=== PATIENT | female | born 1955 | race Caucasian/White ===

== ENCOUNTER 2024-01-20 10:43 | Outpatient (AMB) | payer OTHER, SELFPAY ==
--- NOTE | 2024-01-20 11:19 | PD.ORTHCLVIS ---
Vital signs 01/20/24 11:20 Height 1.55 m Height Method Stated Weight 59.931 kg Weight Measurement Method Standing Scale BMI 24.9 BP 124/77 Blood Pressure Source Automatic Cuff Blood Pressure Location Right Upper Arm Position Sitting Respiration 19 Pulse 102 H Pulse Source Monitor Temp 97.7 F Temp Source Temporal Artery Scan Pulse Oximetry (%) 95 Oxygen Delivery Method Room Air Med/Allergies Allergies & Medications Allergies YOHANA Inhibitors Allergy (Intermediate, Verified 01/20/24 11:20) Cough Medication Reconciliation insulin glargine 100 unit/mL (3 mL) subcutaneous pen (Lantus Solostar U-100 Insulin) 30 unit subcut QDAY PRN Hyperglycemia 06/20/17 [History Confirmed 01/20/24] dapagliflozin propanediol 5 mg tablet (Farxiga) 5 mg PO QAM 07/09/22 [History Confirmed 01/20/24] duloxetine 30 mg capsule,delayed release 30 mg PO HS 07/09/22 [History Confirmed 01/20/24] atorvastatin 20 mg tablet (Lipitor) 20 mg PO QDAY 01/02/24 [History Confirmed 01/20/24] duloxetine 60 mg capsule,delayed release sprinkle 60 mg PO QAM 01/02/24 [History Confirmed 01/20/24] memantine 5 mg tablet 5 mg PO DAILY 01/02/24 [History Confirmed 01/20/24] acetaminophen 500 mg tablet (Acetaminophen Extra Strength) 1,000 mg (2 x 500 mg) PO Q6H PRN pain #90 tabs 01/05/24 [Rx Confirmed 01/20/24] apixaban 2.5 mg tablet (Eliquis) 2.5 mg PO BID #60 tabs 01/05/24 [Rx Confirmed 01/20/24] doxycycline hyclate 100 mg tablet 100 mg PO BID #14 tabs 01/05/24 [Rx Confirmed 01/20/24] gabapentin 300 mg capsule 300 mg PO .qhs #30 caps 01/05/24 [Rx Confirmed 01/20/24] sennosides 8.6 mg-docusate sodium 50 mg tablet (Senna-S) 1 tab-cap PO QDAY #30 tabs 01/05/24 [Rx Confirmed 01/20/24] Subjective Visit Visit for: post op #1 Immunization / Flu Flu Vaccine in the Last 12 Months: No Flu Vaccine Exclusion Criteria: No Exclusion Criteria History of Present Illness Chief complaint: Left knee pain Patient is a pleasant 60-year-old female with a recent left total knee replacement. She is doing well. She has minimal pain. There is some swelling which is Appropriate Personal History Occupation: DISABLED Red flag PMH: none Pain Pain level (0-10): 4 Pain duration: ALL DAY Pain location: anterior Pain quality: sharp and dull Ambulatory data Ambulatory device: cane Treatments Improvement with previous injections: No Improvement with PT: No Improvement with NSAIDS: n/a Review of Systems Review of Systems: All systems negative unless otherwise noted in HPI. Exam Exam Patient is in no acute distress and is cooperative with the examination today. Patient has a normal mood and affect. Breathing is nonlabored. In no respiratory distress. Bilateral extremities were evaluated and demonstrates sensation intact to light touch. Palpable pedal pulses are present. No significant edema is present. Left knee incision is clean dry and intact. Assessment and Plan Problem List (1) Bilateral primary osteoarthritis of knee: Status: Acute Plan: . Patient is a pleasant 67-year-old female with bilateral knee pain and osteoarthritis. She is status post right total knee replacement and is doing well. We will transition her to outpatient physical therapy. (2) Bilateral knee pain: Status: Acute Advanced Care Planning Discussion Advance care planning discussed with:: patient Office Procedures GNS Level of Care Nursing/Assessment Patient Status: Established Patient Nursing Assessment/Reassesment: Medication Reconciliation, Update PMH in EMR and Vital Signs Coordination of Care: Complex Care and Chronic Disease 1-5, Education Complex Pt/Fam, Consent,records obtained, informed consent, 1 Ins Authorization, Results/Orders obtained and Staff clarify orders Special Needs: Language special needs Established Patient Charge Established Patient Point Assignment: 110 Established Patient Point Charge: EP Level 3 (80-115) Past Medical History Past Medical History Have you ever been diagnosed with any of the following: Neurological Problems Seizures: No Cardiology Problems Hypercholesterolemia: Yes Congestive Heart Failure: No Deep Vein Thrombosis: Yes (Left 2022) Hypertension: Yes Respiratory Problems Chronic Obstructive Pulmonary Disease (COPD): No Hx Cough: No Cough: No Wheezing: No Chest Deformities: No Smoking: No Smoking Cessation Counseling: No Smoking Exposure: No Tobacco Use: No Clubbing: No Stomache/Intestinal Problems Hepatitis: No Genital/Urinary Problems Renal Disease: No Reproductive Problems Previous Pregnancies: Yes Uterine Prolapse: No Musculoskeletal Problems Arthritis: Yes Degenerative Disk Disease: Yes Fractures: Yes Endocrine Problems Diabetes Mellitus Type 1: No Diabetes Mellitus Type 2: Yes Psychologic Problems Depression: Yes Anxiety: Yes Other Problems Hospitalization: Yes (DVT) Shingles: No Blood Transfusions: No Blood Transfusion Reaction: No Anesthesia Reactions: No Measles: Yes Mumps: Yes Cancer: No Surgical History Hysterectomy: Yes
[2024-01-20 11:20] VITALS: BP 124/77; PULSE 102; RESP 19; TEMP 36.5; O2SAT 95; BMI 24.9
== END 2024-01-20 11:20 | disposition home or self-care (01) ==
LOC: HODSRG 10:43
PROVIDERS: PCP Internal Medicine; Referring Provider Internal Medicine; Supervising Provider Orthopaedic Surgery Adult Reconstructive Orthopaedic Surgery; Visit Provider Orthopaedic Surgery Adult Reconstructive Orthopaedic Surgery
DX: M17.0 Bilateral primary osteoarthritis of knee (principal); M25.561 Pain in right knee; M25.562 Pain in left knee; Z96.651 Presence of right artificial knee joint; E78.00 Pure hypercholesterolemia, unspecified; I10 Essential (primary) hypertension
CPT/HCPCS: 99213; G0463

== ENCOUNTER 2024-02-17 10:08 | Outpatient (AMB) | payer OTHER, SELFPAY ==
[2024-02-17 10:48] VITALS: BP 121/72; PULSE 83; RESP 18; TEMP 36.6; O2SAT 98; BMI 24.7
--- NOTE | 2024-02-17 10:48 | PD.ORTHCLVIS ---
Vital signs 02/17/24 10:48 Height 1.55 m Height Method Stated Weight 59.421 kg Weight Measurement Method Standing Scale BMI 24.7 BP 121/72 Blood Pressure Source Automatic Cuff Blood Pressure Location Left Upper Arm Position Sitting Respiration 18 Pulse 83 Pulse Source Monitor Temp 97.9 F Temp Source Temporal Artery Scan Pulse Oximetry (%) 98 Oxygen Delivery Method Room Air Med/Allergies Allergies & Medications Allergies YOHANA Inhibitors Allergy (Intermediate, Verified 02/17/24 10:49) Cough Medication Reconciliation insulin glargine 100 unit/mL (3 mL) subcutaneous pen (Lantus Solostar U-100 Insulin) 30 unit subcut QDAY PRN Hyperglycemia 06/20/17 [History Confirmed 02/17/24] dapagliflozin propanediol 5 mg tablet (Farxiga) 5 mg PO QAM 07/09/22 [History Confirmed 02/17/24] duloxetine 30 mg capsule,delayed release 30 mg PO HS 07/09/22 [History Confirmed 02/17/24] atorvastatin 20 mg tablet (Lipitor) 20 mg PO QDAY 01/02/24 [History Confirmed 02/17/24] duloxetine 60 mg capsule,delayed release sprinkle 60 mg PO QAM 01/02/24 [History Confirmed 02/17/24] memantine 5 mg tablet 5 mg PO DAILY 01/02/24 [History Confirmed 02/17/24] acetaminophen 500 mg tablet (Acetaminophen Extra Strength) 1,000 mg (2 x 500 mg) PO Q6H PRN pain #90 tabs 01/05/24 [Rx Confirmed 02/17/24] apixaban 2.5 mg tablet (Eliquis) 2.5 mg PO BID #60 tabs 01/05/24 [Rx Confirmed 02/17/24] doxycycline hyclate 100 mg tablet 100 mg PO BID #14 tabs 01/05/24 [Rx Confirmed 02/17/24] gabapentin 300 mg capsule 300 mg PO .qhs #30 caps 01/05/24 [Rx Confirmed 02/17/24] sennosides 8.6 mg-docusate sodium 50 mg tablet (Senna-S) 1 tab-cap PO QDAY #30 tabs 01/05/24 [Rx Confirmed 02/17/24] oxycodone 5 mg tablet 5 mg PO Q6H PRN pain #28 tabs 01/23/24 [Rx Confirmed 02/17/24] meloxicam 7.5 mg tablet 7.5 mg PO QDAY #45 tabs 02/17/24 [Rx] Subjective Visit Visit for: follow up visit and knee Immunization / Flu Flu Vaccine in the Last 12 Months: No Flu Vaccine Exclusion Criteria: No Exclusion Criteria History of Present Illness Chief complaint: Left knee pain Patient is a pleasant 60-year-old female with a recent left total knee replacement. She is doing well. She has minimal pain. There is some swelling which is appropriate. ROM is 0-90 degrees Personal History Occupation: DISABLED Red flag PMH: none Pain Pain level (0-10): 0 Pain duration: ALL DAY Pain location: anterior Pain quality: sharp and dull Ambulatory data Ambulatory device: walker Treatments Improvement with previous injections: No Improvement with PT: No Improvement with NSAIDS: no Review of Systems Review of Systems: All systems negative unless otherwise noted in HPI. Exam Exam Patient is in no acute distress and is cooperative with the examination today. Patient has a normal mood and affect. Breathing is nonlabored. In no respiratory distress. Bilateral extremities were evaluated and demonstrates sensation intact to light touch. Palpable pedal pulses are present. No significant edema is present. Left knee incision is clean dry and intact.ROM is 0-90 degrees Assessment and Plan Problem List (1) Bilateral primary osteoarthritis of knee: Status: Acute Plan: . Patient is a pleasant 67-year-old female with bilateral knee pain and osteoarthritis. She is status post left total knee replacement and is doing well. She is working with outpatient physical therapy. I would like for her to work on her flexion more. She is in quite a bit of pain today as she just came from physical therapy. (2) Bilateral knee pain: Status: Acute Advanced Care Planning Discussion Advance care planning discussed with:: patient Office Procedures GNS Level of Care Nursing/Assessment Patient Status: Established Patient Nursing Assessment/Reassesment: Medication Reconciliation, Update PMH in EMR and Vital Signs Coordination of Care: Complex Care and Chronic Disease 1-5, Education Complex Pt/Fam, Consent,records obtained, informed consent, Results/Orders obtained and Staff clarify orders Established Patient Charge Established Patient Point Assignment: 95 Established Patient Point Charge: EP Level 3 (80-115) Past Medical History Past Medical History Have you ever been diagnosed with any of the following: Neurological Problems Seizures: No Cardiology Problems Hypercholesterolemia: Yes Congestive Heart Failure: No Deep Vein Thrombosis: Yes (Left 2022) Hypertension: Yes Respiratory Problems Chronic Obstructive Pulmonary Disease (COPD): No Hx Cough: No Cough: No Wheezing: No Chest Deformities: No Smoking: No Smoking Cessation Counseling: No Smoking Exposure: No Tobacco Use: No Clubbing: No Stomache/Intestinal Problems Hepatitis: No Genital/Urinary Problems Renal Disease: No Reproductive Problems Previous Pregnancies: Yes Uterine Prolapse: No Musculoskeletal Problems Arthritis: Yes Degenerative Disk Disease: Yes Fractures: Yes Endocrine Problems Diabetes Mellitus Type 1: No Diabetes Mellitus Type 2: Yes Psychologic Problems Depression: Yes Anxiety: Yes Other Problems Hospitalization: Yes (DVT) Shingles: No Blood Transfusions: No Blood Transfusion Reaction: No Anesthesia Reactions: No Measles: Yes Mumps: Yes Cancer: No Surgical History Hysterectomy: Yes
== END 2024-02-17 11:07 | disposition home or self-care (01) ==
LOC: HODSRG 10:08
PROVIDERS: Supervising Provider Orthopaedic Surgery Adult Reconstructive Orthopaedic Surgery; Visit Provider Orthopaedic Surgery Adult Reconstructive Orthopaedic Surgery
DX: M17.0 Bilateral primary osteoarthritis of knee (principal); M25.561 Pain in right knee; M25.562 Pain in left knee; Z96.652 Presence of left artificial knee joint; I10 Essential (primary) hypertension; E78.00 Pure hypercholesterolemia, unspecified
CPT/HCPCS: 99213; G0463

== ENCOUNTER 2024-02-25 09:30 | Outpatient (RCR) | payer OTHER, SELFPAY ==
--- NOTE | 2024-02-11 09:44 | PT.OIERPT ---
PT OP Initial Eval Patient Information Outpatient Physical Therapy Treatment Date: 02/11/24 Visit Reasons: S/P L TKA Medical Diagnosis: Left Knee OA Treatment Dx #1: Left Knee Mobility Deficits Treatment Dx #2: Left Knee Weakness Start of Care: 02/11/24 Date of Onset: 01/05/24 Smoking Status Smoking Status: Never smoker Initial Assessment Subjective: Pt is a 68 y/o female s/p left TKA 01/05/24. Pt's knee was feeling better until she bumped into her recliner. Pt recieved a few weeks of homehealth PT with Sarah. Pt has limitation with standing, walking, chores, self care, cooking, cleaning, squatting, and performing recreational activities. Objective: Left Knee AROM: -12 deg to 60 deg Left Knee MMTs: grossly 3-/5 Left Hip MMTs: grossly 3-/5 SLS: NT Assessment: Pt demonstrate left knee mobility and strength deficits s/p TKA leading to difficulty with ADLs. Pt will benefit from physical therapy to increase ROM, strength, and work on mobility. 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 1) Increase left knee flexion to 115 deg in 12 wks to be able to perform squatting activities 2) Decrease knee pain to 2/10 in 12 wks to be able to stand more than 30 mins 3) Increase left knee MMTs grossly to 4/5 in 12 wks to be able to perform stairs and steps 4) Increase left hip MMTs grossly to 4-/5 in 12 wks to be able to walk more than 30 mins without AD 5) Indep with HEP Treatment Plan 1) Manual Therapy 2) Therapeutic Activities 3) Therapeutic Exercises 4) Modalities (ice, heat) 5) Gait Training 6) Balance Training Frequency and Duration: 2 x wk for 12 wks Certification Dates: 02/11/24 to 05/13/24 Procedure Charges OP PT Eval Mod Complex 30 minutes: Yes
--- NOTE | 2024-02-13 13:05 | PT.ODAYNRPT ---
PT Outpatient Daily Note OP Daily Note Outpatient Physical Therapy Treatment Date: 02/13/24 Visit Reasons: S/P L TKA Subjective: Pt's knee is stiff and hurts with bending. Objective: Please see flow chart for list of ther ex performed Assessment: guarded with knee flexion AROM due to pain; improved knee flexion AROM post PT session Plan: Continue with PT Length of Time (minutes) of Treatment: 30 Minutes Procedure Charges Therapeutic Exercise 30 minutes: Yes
--- NOTE | 2024-02-17 10:05 | PT.ODAYNRPT ---
PT Outpatient Daily Note OP Daily Note Outpatient Physical Therapy Treatment Date: 02/17/24 Visit Reasons: S/P L TKA Subjective: Pt is having a bad day today. The knee feels really stiff. Pt mention she hasn't been stretching much at home. Objective: Please see flow chart for list of ther ex performed Assessment: hypersensitive today and unable to relax during PROM/stretching. Slow progress with knee ROM due to poor tolerance to exercises due to pain Plan: Continue with PT Length of Time (minutes) of Treatment: 30 Minutes Procedure Charges Therapeutic Exercise 30 minutes: Yes
--- NOTE | 2024-02-19 11:00 | PTNOTE_ITS ---
PT Outpatient Daily Note OP Daily Note Outpatient Physical Therapy Treatment Date: 02/19/24 Visit Reasons: S/P L TKA Subjective: Pt seen doctor and he wants her to take it easy in physical therapy to help with the swelling. Objective: Left Knee Flexion AROM: 61 deg//68 deg Assessment: improved knee flexion AROM post stretching. Pt more guarded to usual due to pain , however, able to tolerate instructed reps Plan: Continue with PT Length of Time (minutes) of Treatment: 30 Minutes Procedure Charges Therapeutic Exercise 30 minutes: Yes
--- NOTE | 2024-02-23 11:26 | PT.ODAYNRPT ---
PT Outpatient Daily Note OP Daily Note Outpatient Physical Therapy Treatment Date: 02/23/24 Visit Reasons: S/P L TKA Subjective: Pt's knee is still from the cold front. Objective: Left Knee AROM: 69 deg//79 deg Assessment: Pt continues to improve with knee flexion AROM. Pt was able to complete full cycle on the sci fit for a few mins today. Plan: Continue with PT Length of Time (minutes) of Treatment: 30 Minutes Procedure Charges Therapeutic Exercise 30 minutes: Yes
--- NOTE | 2024-02-25 10:47 | PT.ODAYNRPT ---
PT Outpatient Daily Note OP Daily Note Outpatient Physical Therapy Treatment Date: 02/25/24 Visit Reasons: S/P L TKA Subjective: Pt reports L knee is sore and stiff. Objective: Please see flow sheet for ther ex list. Assessment: Pt highly guarded and high pain response with PROM into knee flexion resulting in poor ROM. Plan: Continue with POC. Length of Time (minutes) of Treatment: 30 Minutes Procedure Charges Therapeutic Exercise 30 minutes: Yes
== END 2024-02-28 23:59 | disposition home or self-care (01) ==
LOC: CPTX 09:30
PROVIDERS: PCP Orthopaedic Surgery Adult Reconstructive Orthopaedic Surgery; Referring Provider Orthopaedic Surgery Adult Reconstructive Orthopaedic Surgery; Visit Provider Orthopaedic Surgery Adult Reconstructive Orthopaedic Surgery
DX: R53.1 Weakness (principal); R26.2 Difficulty in walking, not elsewhere classified; Z96.652 Presence of left artificial knee joint; M17.12 Unilateral primary osteoarthritis, left knee
CPT/HCPCS: 97110; 97162

== ENCOUNTER → 2024-03-09 | Outpatient (CLI) | payer OTHER, SELFPAY ==
[2024-03-09 10:24] LABS: Basophils # (Auto) 0.1 Thou/mm3 (0.0-0.2); Basophils % (Auto) 2 % (0-2.5); Eosinophils # (Auto) 0.1 Thou/mm3 (0.0-0.5); Eosinophils % (Auto) 1 % (0-10); Hematocrit 44.6 % (36.0-46.0); Hemoglobin 14.9 g/dL (12.0-16.0); Immature Granulocytes % (Auto) 0 % (0-0); Immature Granulocytes Auto 0.02 Thou/mm3 (0.00-0.00); Lymphocytes # (Auto) 1.4 Thou/mm3 (1.0-4.8); Lymphocytes % (Auto) 27 % (10-50); Mean Corpuscular HGB Conc 33.4 g/dl (31.0-37.0); Mean Corpuscular Hemoglobin 30.2 pg (25.0-35.0); Mean Corpuscular Volume 90 fL (80-100); Monocytes # (Auto) 0.5 Thou/mm3 (0.0-0.8); Monocytes % (Auto) 10 % (0-12); Neutrophils # (Auto) 3.3 Thou/mm3 (1.8-7.7); Neutrophils % (Auto) 60 % (37-80); Nucleated Red Blood Cell % 0 /100 WBC (0); Platelet Count 249 Thou/mm3 (140-440); RDW Standard Deviation 45.4 fL (36.4-46.3); Red Blood Count 4.94 Miln/mm3 (4.00-5.20); White Blood Count 5.4 Thou/mm3 (3.6-11.0)
[2024-03-09 10:49] LABS: Glucose Estimated Average 126 mg/dL (80-131)
[2024-03-09 11:00] LABS: Vitamin B12 1258 pg/mL (211-911); Vitamin D 25 Hydroxy Total 43.4 ng/mL (7.3-40.2)
[2024-03-09 11:02] LABS: Alanine Aminotransferase 11 U/L (10-49); Albumin, Serum 4.8 gm/dL (3.4-4.8); Albumin/Globulin Ratio 2.5 (1.2-2.2); Alkaline Phosphatase 82 U/L (46-116); Anion Gap 7 (7-16); Aspartate Amino Transferase 16 U/L (0-34); BUN/Creatinine Ratio 29 Ratio (12-20); Bilirubin,Total 0.4 mg/dL (0.3-1.2); Blood Urea Nitrogen 23 mg/dL (9-23); Carbon Dioxide 24.1 mMol/L (20.0-31.0); Cardiac Risk Estimate 3.7 RATIO (3.7-5.6); Chloride 109 mMol/L (98-107); Cholesterol 191 mg/dL (132-200); Creatinine (Component) 0.8 mg/dL (0.6-1.3); Globulin 1.9 gm/dL (2.3-3.5); Glucose 87 mg/dL (74-106); HDL Cholesterol 51 mg/dL (40-60); LDL Cholesterol,Calculated 128 mg/dL (0-130); Osmolality,Calculated 282 (275-295); Potassium 4.6 mMol/L (3.4-5.1); Sodium 140 mMol/L (136-145); Thyroid Stimulating Hormone 1.65 uIU/mL (0.55-4.78); Total Protein 6.7 gm/dL (5.7-8.2); Triglycerides 59 mg/dL (30-150); Uric Acid 3.5 mg/dL (3.1-7.8); eGFR > 60 See Note
[2024-03-09 11:19] LABS: Collection Type, Urine Clean Catch
[2024-03-09 11:52] LABS: Bilirubin,Urine Negative (Negative); Blood,Urine Negative (Negative); Clarity,Urine Clear (Clear/Hazy); Color,Urine Lt-Yellow (Lt Yel-Yel); Glucose, Urine 4+ (Negative); Ketones,Urine Negative (Negative); Leukocyte Esterase,Urine Negative (Negative); Nitrite,Urine Negative (Negative); Protein,Urine Negative (Neg - Trace); RBC,Urine 2 /hpf (0-3); Specific Gravity,Urine 1.032 (1.001-1.035); Squamous Epithelial Cell,Urine < 1 /hpf (0-5); Urobilinogen,Urine Negative mg/dL (0.0-1.0); WBC,Urine < 1 /hpf (0-5)
[2024-03-09 12:06] LABS: Creatinine MALB Rnd Ur 70 mg/dL (30-125); Microalbumin Creat Ratio 7 mg/gCrea (<30); Microalbumin, Random Urine 5 mg/L (0-300)
== END | disposition home or self-care (01) ==
PROVIDERS: PCP Internal Medicine; Referring Provider Internal Medicine; Visit Provider Internal Medicine
DX: Z00.00 Encounter for general adult medical examination without abnormal findings (principal); E11.9 Type 2 diabetes mellitus without complications; I10 Essential (primary) hypertension; E78.5 Hyperlipidemia, unspecified
CPT/HCPCS: 36415; 80053; 80061; 81001; 82043; 82306; 82570; 82607; 83036; 84443; 84550; 85025

== ENCOUNTER 2024-03-12 09:51 | Outpatient (AMB) | payer OTHER, SELFPAY ==
[2024-03-12 10:14] VITALS: BP 130/71; PULSE 77; RESP 17; TEMP 36.8; O2SAT 98; BMI 25.3
--- NOTE | 2024-03-12 10:14 | PD.ORTHCLVIS ---
Vital signs 03/12/24 10:14 Height 1.55 m Height Method Measured Weight 60.781 kg Weight Measurement Method Standing Scale BMI 25.3 BP 130/71 Blood Pressure Source Automatic Cuff Blood Pressure Location Left Upper Arm Position Sitting Respiration 17 Pulse 77 Pulse Source Monitor Temp 98.2 F Temp Source Oral Pulse Oximetry (%) 98 Oxygen Delivery Method Room Air Med/Allergies Allergies & Medications Allergies YOHANA Inhibitors Allergy (Intermediate, Verified 02/17/24 10:49) Cough Subjective Visit Visit for: follow up visit, post op #2 and knee Immunization / Flu Flu Vaccine in the Last 12 Months: Yes Date of most recent flu vaccination: 07/30/23 Flu Vaccine Exclusion Criteria: No Exclusion Criteria History of Present Illness Chief complaint: PT HERE IN OFFICE 7 WEEK POST OP LEFT TKA Patient is a pleasant 68-year-old female with a recent left total knee replacement. She is doing well. She has minimal pain. There is some swelling which is appropriate. ROM is 0-100 degrees Personal History Occupation: DISABLED Red flag PMH: none Pain Pain level (0-10): 4 Pain duration: VARIES Pain location: inside (medial), outside (lateral), anterior and posterior Pain quality: aching Pain timing: other (specify) (WHEN SITTING FOR LONG PERIODS OF TIME) Associated signs & symptoms: none Ambulatory data Ambulatory device: none Treatments Improvement with previous injections: No Improvement with PT: No Improvement with NSAIDS: no Review of Systems Review of Systems: All systems negative unless otherwise noted in HPI. Exam Exam Patient is in no acute distress and is cooperative with the examination today. Patient has a normal mood and affect. Breathing is nonlabored. In no respiratory distress. Bilateral extremities were evaluated and demonstrtes sensation intact to light touch. Palpable pedal pulses are present. No significant edema is present. Left knee incision is clean dry and intact.ROM is 0-100 degrees Assessment and Plan Problem List (1) Bilateral primary osteoarthritis of knee: Status: Acute Plan: Patient is a pleasant 67-year-old female with bilateral knee pain and osteoarthritis. She is status post left total knee replacement and is doing well. She is working with outpatient physical therapy. She is very happy. (2) Bilateral knee pain: Status: Acute Advanced Care Planning Discussion Advance care planning discussed with:: patient Office Procedures GNS Level of Care Nursing/Assessment Patient Status: Established Patient Nursing Assessment/Reassesment: BP Monitoring, Medication Reconciliation, Update PMH in EMR and Vital Signs Coordination of Care: Complex Care and Chronic Disease 1-5, Consent,records obtained, informed consent, Lab and Imaging orders and Results/Orders obtained Established Patient Charge Established Patient Point Assignment: 95 Established Patient Point Charge: Level 3 (80-115) Past Medical History Past Medical History Have you ever been diagnosed with any of the following: Neurological Problems Seizures: No Cardiology Problems Hypercholesterolemia: Yes Congestive Heart Failure: No Deep Vein Thrombosis: Yes (Left 2022) Hypertension: Yes Respiratory Problems Chronic Obstructive Pulmonary Disease (COPD): No Hx Cough: No Cough: No Wheezing: No Chest Deformities: No Smoking: No Smoking Cessation Counseling: No Smoking Exposure: No Tobacco Use: No Clubbing: No Stomache/Intestinal Problems Hepatitis: No Genital/Urinary Problems Renal Disease: No Reproductive Problems Previous Pregnancies: Yes Uterine Prolapse: No Musculoskeletal Problems Arthritis: Yes Degenerative Disk Disease: Yes Fractures: Yes Endocrine Problems Diabetes Mellitus Type 1: No Diabetes Mellitus Type 2: Yes Psychologic Problems Depression: Yes Anxiety: Yes Other Problems Hospitalization: Yes (DVT) Shingles: No Blood Transfusions: No Blood Transfusion Reaction: No Anesthesia Reactions: No Measles: Yes Mumps: Yes Cancer: No Surgical History Hysterectomy: Yes
== END 2024-03-12 10:46 | disposition home or self-care (01) ==
LOC: HODSRG 09:51
PROVIDERS: PCP Internal Medicine; Referring Provider Internal Medicine; Supervising Provider Orthopaedic Surgery Adult Reconstructive Orthopaedic Surgery; Visit Provider Orthopaedic Surgery Adult Reconstructive Orthopaedic Surgery
DX: M17.0 Bilateral primary osteoarthritis of knee (principal); M25.562 Pain in left knee; M25.561 Pain in right knee; I10 Essential (primary) hypertension; E78.00 Pure hypercholesterolemia, unspecified; Z71.89 Other specified counseling; Z96.652 Presence of left artificial knee joint
CPT/HCPCS: 99213; G0463

== ENCOUNTER → 2024-03-15 | Outpatient (CLI) | payer OTHER, SELFPAY ==
--- NOTE | 2024-03-15 12:20 | XR_ITS ---
Examination: Bone densitometry Date and time of exam:March 15, 2024 1230 hours INDICATIONS: Menopause age 58, family history, mother osteoporosis Technique: Lumbar spine and hip total bone mineralization values of an calculated. Peak reference and age match control results have been displayed. Findings: Lumbar spine total bone mineralization is0.970 gm/cm2. This is 0.7 standard deviations below peak reference. This is 1.3 standard deviations above age-matched controls. Hip total bone mineralization is 0.727 gm/cm2 This is 1.8 standard deviations below peak reference. This is 0.3 standard deviations below age-matched controls Impression: There is normal mineralization based on lumbar spine measurements. There is osteopenia based on hip measurements
== END | disposition home or self-care (01) ==
LOC: CDIM 12:15
PROVIDERS: PCP Internal Medicine; Referring Provider Internal Medicine; Visit Provider Internal Medicine
DX: M85.88 Other specified disorders of bone density and structure, other site (principal)
CPT/HCPCS: 77080

== ENCOUNTER 2024-03-26 10:00 | Outpatient (RCR) | payer OTHER, SELFPAY ==
--- NOTE | 2024-03-05 13:36 | PT.ODAYNRPT ---
PT Outpatient Daily Note OP Daily Note Outpatient Physical Therapy Treatment Date: 03/05/24 Visit Reasons: knee Subjective: Pt reports L knee is stiff and sore. As per pt she is compliant with HEP. Objective: Please see flow sheet for ther ex list. Assessment: Pt highly guarded during PROM due to pain response resulting in limited mobility. Plan: Continue with POC. Length of Time (minutes) of Treatment: 30 Minutes Procedure Charges Therapeutic Exercise 30 minutes: Yes
--- NOTE | 2024-03-09 09:35 | PT.ODAYNRPT ---
PT Outpatient Daily Note OP Daily Note Outpatient Physical Therapy Treatment Date: 03/09/24 Visit Reasons: knee Subjective: Pt reports L knee is doing ok, still stiff but notices some progress with flexibility. Objective: Please see flow sheet for ther ex list. Assessment: Pt continues to be highly guarded during PROM resulting in poor ROM. Plan: Continue with POC. 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 If greater than 11 percent modifier is required. Method II: Divide the total time of care provided to patient by 10 (round to the nearest whole number) and add 1 min. to set the minimum time requirement. If treatment total was 60 min., then 10% of 6 min PT CQ modifier applied: CQ Modifier applied Procedure Charges Therapeutic Exercise 30 minutes: Yes
--- NOTE | 2024-03-11 09:35 | PTNOTE_ITS ---
PT Outpatient Daily Note OP Daily Note Outpatient Physical Therapy Treatment Date: 03/11/24 Visit Reasons: knee Subjective: Pt reports pt continues to have stiffness but has been compliant with HEP. Objective: Please see flow sheet for ther ex list. Assessment: Pt highly guarded during PROM, able to reach ~90 deg when mobilizing. Plan: Continue with POC. Length of Time (minutes) of Treatment: 30 Minutes CRISIS INTERVENTION COUNSELOR Service Modifier Method I: Divide the number of min of care provided by the CRISIS INTERVENTION COUNSELOR/PECAN PICKER by the total min of care provided then multiply by 100. If greater than 11 percent modifier is required. Method II: Divide the total time of care provided to patient by 10 (round to the nearest whole number) and add 1 min. to set the minimum time requirement. If treatment total was 60 min., then 10% of 6 min PT CQ modifier applied: CQ Modifier applied Procedure Charges Therapeutic Exercise 30 minutes: Yes
--- NOTE | 2024-03-16 10:27 | PTNOTE_ITS ---
PT Outpatient Daily Note OP Daily Note Outpatient Physical Therapy Treatment Date: 03/16/24 Visit Reasons: knee Subjective: Pt reports knee is doing better, continues to perform stretches at home. Objective: Please see flow sheet for ther ex list. L knee AROM flexion 101 deg. Assessment: Pt ROM continues to improve. Progressing strengthening interventions. Plan: Continue with POC. Length of Time (minutes) of Treatment: 30 Minutes HORSE TRAINER Service Modifier Method I: Divide the number of min of care provided by the HORSE TRAINER/GIAN by the total min of care provided then multiply by 100. If greater than 11 percent modifier is required. Method II: Divide the total time of care provided to patient by 10 (round to the nearest whole number) and add 1 min. to set the minimum time requirement. If treatment total was 60 min., then 10% of 6 min PT CQ modifier applied: CQ Modifier applied Procedure Charges Therapeutic Exercise 30 minutes: Yes
--- NOTE | 2024-03-18 09:37 | PT.ODAYNRPT ---
PT Outpatient Daily Note OP Daily Note Outpatient Physical Therapy Treatment Date: 03/18/24 Visit Reasons: knee Subjective: Pt reports knee is doing better, notices she can move more. Objective: Please see flow sheet for ther ex list. Assessment: Added lateral, forward and retro drill to simulate movement for pt to return to sport, pt would like to play pickle ball in future. Plan: Continue with POC. Length of Time (minutes) of Treatment: 30 Minutes CRIMINAL RECORDS TECHNICIAN Service Modifier Method I: Divide the number of min of care provided by the CRIMINAL RECORDS TECHNICIAN/GIAN by the total min of care provided then multiply by 100. If greater than 11 percent modifier is required. Method II: Divide the total time of care provided to patient by 10 (round to the nearest whole number) and add 1 min. to set the minimum time requirement. If treatment total was 60 min., then 10% of 6 min PT CQ modifier applied: CQ Modifier applied Procedure Charges Therapeutic Exercise 30 minutes: Yes
--- NOTE | 2024-03-22 10:41 | PT.ODAYNRPT ---
PT Outpatient Daily Note OP Daily Note Outpatient Physical Therapy Treatment Date: 03/22/24 Visit Reasons: knee Subjective: Pt's knee is better. Pt notice she can bend her knee with less pain Objective: Left Knee Flexion: 115 deg Assessment: Pt is progressing with knee flexion AROM; less guarding noted with stretching today Plan: Continue with PT Length of Time (minutes) of Treatment: 30 Minutes Procedure Charges Therapeutic Exercise 30 minutes: Yes
--- NOTE | 2024-03-26 14:54 | PT.ODS1RPT ---
PT OP Progress/Discharge Note Date of Service: 03/26/24 Progress Note/DC Note Progress Note/Discharge Note: DC Note Patient Information Visit Reasons: knee Medical Diagnosis: Left Knee OA Treatment Dx #1: Left Knee Pain Service Continue Service or Discharge: Discharge Discharge Date: 03/26/24 Status Subjective: Pt's knee is good and has been able to resume ADLs, chores, walk, and perform recreational activities. Pt will like to be release from care at this time. Objective: Left Knee AROM: -8 deg to 120 deg Left Knee MMTs: grossly 4/5 Left Hip MMTs: grossly 4-/5 SLS: 10 sec Assessment: Pt demonstrate left knee mobility and strength allowing her to resume ADLs, ambulate, and perform chores with less limitation. At this time Pt will not benefit from skilled physical therapy due to meeting set goals. Pt was instructed on HEP last session and educated to continue exercises to maintain overall mobility. Pt performed all exercises safely, thank you for your referrals. Plan: D/C home with HEP and follow up with MD BORGES Procedure Charges Therapeutic Exercise 30 minutes: Yes
== END 2024-03-30 23:59 | disposition home or self-care (01) ==
LOC: CPTX 10:00
PROVIDERS: PCP Orthopaedic Surgery Adult Reconstructive Orthopaedic Surgery; Referring Provider Orthopaedic Surgery Adult Reconstructive Orthopaedic Surgery; Visit Provider Orthopaedic Surgery Adult Reconstructive Orthopaedic Surgery
DX: M25.561 Pain in right knee (principal); R26.2 Difficulty in walking, not elsewhere classified; R26.89 Other abnormalities of gait and mobility; Z96.651 Presence of right artificial knee joint
CPT/HCPCS: 97110

== ENCOUNTER 2024-05-18 09:34 | Outpatient (AMB) | payer OTHER, SELFPAY ==
[2024-05-18 09:56] VITALS: BP 136/79; PULSE 99; RESP 18; TEMP 36.4; O2SAT 97; BMI 25.8
--- NOTE | 2024-05-18 09:56 | ORTHONT_ITS ---
Vital signs 05/18/24 09:56 Height 1.55 m Height Method Stated Weight 62.142 kg Weight Measurement Method Standing Scale BMI 25.8 BP 136/79 H Blood Pressure Source Automatic Cuff Blood Pressure Location Right Upper Arm Position Sitting Respiration 18 Pulse 99 Pulse Source Monitor Temp 97.6 F Temp Source Temporal Artery Scan Pulse Oximetry (%) 97 Oxygen Delivery Method Room Air Med/Allergies Allergies & Medications Allergies YOHANA Inhibitors Allergy (Intermediate, Verified 05/18/24 09:56) Cough Medication Reconciliation insulin glargine 100 unit/mL (3 mL) subcutaneous pen (Lantus Solostar U-100 Insulin) 30 unit subcut QDAY PRN Hyperglycemia 06/20/17 [History Confirmed 05/18/24] dapagliflozin propanediol 5 mg tablet (Farxiga) 5 mg PO QAM 07/09/22 [History Confirmed 05/18/24] duloxetine 30 mg capsule,delayed release 30 mg PO HS 07/09/22 [History Confirmed 05/18/24] atorvastatin 20 mg tablet (Lipitor) 20 mg PO QDAY 01/02/24 [History Confirmed 05/18/24] duloxetine 60 mg capsule,delayed release sprinkle 60 mg PO QAM 01/02/24 [History Confirmed 05/18/24] memantine 5 mg tablet 5 mg PO DAILY 01/02/24 [History Confirmed 05/18/24] acetaminophen 500 mg tablet (Acetaminophen Extra Strength) 1,000 mg (2 x 500 mg) PO Q6H PRN pain #90 tabs 01/05/24 [Rx Confirmed 05/18/24] apixaban 2.5 mg tablet (Eliquis) 2.5 mg PO BID #60 tabs 01/05/24 [Rx Confirmed 05/18/24] doxycycline hyclate 100 mg tablet 100 mg PO BID #14 tabs 01/05/24 [Rx Confirmed 05/18/24] gabapentin 300 mg capsule 300 mg PO .qhs #30 caps 01/05/24 [Rx Confirmed 05/18/24] sennosides 8.6 mg-docusate sodium 50 mg tablet (Senna-S) 1 tab-cap PO QDAY #30 tabs 01/05/24 [Rx Confirmed 05/18/24] oxycodone 5 mg tablet 5 mg PO Q6H PRN pain #28 tabs 01/23/24 [Rx Confirmed 05/18/24] meloxicam 7.5 mg tablet 7.5 mg PO QDAY #45 tabs 02/17/24 [Rx Confirmed 05/18/24] Exam Exam Patient is in no acute distress and is cooperative with the examination today. Patient has a normal mood and affect. Breathing is nonlabored. In no respiratory distress. Bilateral extremities were evaluated and demonstrtes sensation intact to light touch. Palpable pedal pulses are present. No significant edema is present. Left knee incision is clean dry and intact.ROM is 0-100 degrees Assessment and Plan Problem List (1) Bilateral primary osteoarthritis of knee: Status: Acute Plan: Patient is a pleasant 67-year-old female with bilateral knee pain and osteoarthritis. She is status post left total knee replacement and is doing well. She is doing well and we will see her in 5 to 6 months with new x-rays (2) Bilateral knee pain: Status: Acute Advanced Care Planning Discussion Advance care planning discussed with:: patient Office Procedures GNS Level of Care Nursing/Assessment Patient Status: Established Patient Nursing Assessment/Reassesment: Medication Reconciliation, Update PMH in EMR and Vital Signs Coordination of Care: Complex Care and Chronic Disease 1-5, Education Complex Pt/Fam, Consent,records obtained, informed consent, Results/Orders obtained and Staff clarify orders Established Patient Charge Established Patient Point Assignment: 95 Established Patient Point Charge: EP Level 3 (80-115) MA Intake Visit Data Collection New Patient or Established: Established Patient (seen at [facility] within 3 years) Reason for Visit:: 3 MONTH FOLLOW UP Seen by Clinical Staff ONLY (RN/MA): No Verbal consent obtained for Telemed visit?: No Steam Finisher Required: No PCP or OBGYN visit in last 3 months: Yes Hx Now: No Do You Feel Safe at Home: Yes Authorities Contacted: N/A Questionairres Past Medical History Past Medical History Have you ever been diagnosed with any of the following: Neurological Problems Seizures: No Cardiology Problems Hypercholesterolemia: Yes Congestive Heart Failure: No Deep Vein Thrombosis: Yes (Left 2022) Hypertension: Yes Respiratory Problems Chronic Obstructive Pulmonary Disease (COPD): No Hx Cough: No Cough: No Wheezing: No Chest Deformities: No Smoking: No Smoking Cessation Counseling: No Smoking Exposure: No Tobacco Use: No Clubbing: No Stomache/Intestinal Problems Hepatitis: No Genital/Urinary Problems Renal Disease: No Reproductive Problems Previous Pregnancies: Yes Uterine Prolapse: No Musculoskeletal Problems Arthritis: Yes Degenerative Disk Disease: Yes Fractures: Yes Endocrine Problems Diabetes Mellitus Type 1: No Diabetes Mellitus Type 2: Yes Psychologic Problems Depression: Yes Anxiety: Yes Other Problems Hospitalization: Yes (DVT) Shingles: No Blood Transfusions: No Blood Transfusion Reaction: No Anesthesia Reactions: No Measles: Yes Mumps: Yes Cancer: No Surgical History Hysterectomy: Yes Subjective Visit Visit for: follow up visit and knee Immunization / Flu Flu Vaccine in the Last 12 Months: No Flu Vaccine Exclusion Criteria: No Exclusion Criteria History of Present Illness Chief complaint: bilateral knee replacements Shima is doing well 9 months after knee replacement on the right and 5 months on the left. She has minimal issues. She is back to playing pickle ball Pain Pain level (0-10): 2 Pain duration: WEATHER CHANGES Pain location: inside (medial) Pain quality: aching Pain timing: increases with activity Associated signs & symptoms: none Ambulatory data Ambulatory device: none Treatments Improvement with previous injections: No Improvement with PT: No Improvement with NSAIDS: no Review of Systems Review of Systems: All systems negative unless otherwise noted in HPI.
== END 2024-05-18 10:23 | disposition home or self-care (01) ==
PROVIDERS: PCP Internal Medicine; Referring Provider Internal Medicine; Supervising Provider Orthopaedic Surgery Adult Reconstructive Orthopaedic Surgery; Visit Provider Orthopaedic Surgery Adult Reconstructive Orthopaedic Surgery
DX: M17.0 Bilateral primary osteoarthritis of knee (principal); M25.562 Pain in left knee; M25.561 Pain in right knee; Z96.652 Presence of left artificial knee joint; I10 Essential (primary) hypertension; E78.00 Pure hypercholesterolemia, unspecified; Z86.718 Personal history of other venous thrombosis and embolism; E11.9 Type 2 diabetes mellitus without complications
CPT/HCPCS: 99213; G0463

== ENCOUNTER 2024-09-16 08:41 | Outpatient (AMB) | payer OTHER, SELFPAY ==
--- NOTE | 2024-09-16 09:27 | PD.ORTHCLVIS ---
Vital signs 09/16/24 09:28 Height 1.55 m Height Method Stated Weight 59.165 kg Weight Measurement Method Standing Scale BMI 24.6 BP 143/82 H Blood Pressure Source Automatic Cuff Blood Pressure Location Right Upper Arm Position Sitting Respiration 18 Pulse 91 Pulse Source Monitor Temp 98.3 F Temp Source Temporal Artery Scan Pulse Oximetry (%) 97 Oxygen Delivery Method Room Air Med/Allergies Allergies & Medications Allergies YOHANA Inhibitors Allergy (Intermediate, Verified 09/16/24 09:29) Cough Medication Reconciliation insulin glargine 100 unit/mL (3 mL) subcutaneous pen (Lantus Solostar U-100 Insulin) 30 unit subcut QDAY PRN Hyperglycemia 06/20/17 [History Confirmed 09/16/24] dapagliflozin propanediol 5 mg tablet (Farxiga) 5 mg PO QAM 07/09/22 [History Confirmed 09/16/24] duloxetine 30 mg capsule,delayed release 30 mg PO HS 07/09/22 [History Confirmed 09/16/24] atorvastatin 20 mg tablet (Lipitor) 20 mg PO QDAY 01/02/24 [History Confirmed 09/16/24] duloxetine 60 mg capsule,delayed release sprinkle 60 mg PO QAM 01/02/24 [History Confirmed 09/16/24] memantine 5 mg tablet 5 mg PO DAILY 01/02/24 [History Confirmed 09/16/24] acetaminophen 500 mg tablet (Acetaminophen Extra Strength) 1,000 mg (2 x 500 mg) PO Q6H PRN pain #90 tabs 01/05/24 [Rx Confirmed 09/16/24] apixaban 2.5 mg tablet (Eliquis) 2.5 mg PO BID #60 tabs 01/05/24 [Rx Confirmed 09/16/24] doxycycline hyclate 100 mg tablet 100 mg PO BID #14 tabs 01/05/24 [Rx Confirmed 09/16/24] gabapentin 300 mg capsule 300 mg PO .qhs #30 caps 01/05/24 [Rx Confirmed 09/16/24] sennosides 8.6 mg-docusate sodium 50 mg tablet (Senna-S) 1 tab-cap PO QDAY #30 tabs 01/05/24 [Rx Confirmed 09/16/24] oxycodone 5 mg tablet 5 mg PO Q6H PRN pain #28 tabs 01/23/24 [Rx Confirmed 09/16/24] meloxicam 7.5 mg tablet 7.5 mg PO QDAY #45 tabs 02/17/24 [Rx Confirmed 09/16/24] Exam Exam Patient is in no acute distress and is cooperative with the examination today. Patient has a normal mood and affect. Breathing is nonlabored. In no respiratory distress. Bilateral extremities were evaluated and demonstrtes sensation intact to light touch. Palpable pedal pulses are present. No significant edema is present. Left knee incision is clean dry and intact. ROM is 0-100 degrees Assessment and Plan Problem List (1) Bilateral primary osteoarthritis of knee: Status: Acute Plan: Patient is a pleasant 67-year-old female with bilateral knee pain and osteoarthritis. She is status post left total knee replacement and is doing well. We will her see back in 1-2 years (2) Bilateral knee pain: Status: Acute Advanced Care Planning Discussion Advance care planning discussed with:: patient Office Procedures GNS Level of Care Nursing/Assessment Patient Status: Established Patient Nursing Assessment/Reassesment: Medication Reconciliation, Update PMH in EMR and Vital Signs Coordination of Care: Complex Care and Chronic Disease 1-5, Education Complex Pt/Fam, Consent,records obtained, informed consent, Results/Orders obtained and Staff clarify orders Established Patient Charge Established Patient Point Assignment: 95 Established Patient Point Charge: EP Level 3 (80-115) MA Intake Visit Data Collection New Patient or Established: Established Patient (seen at [facility] within 3 years) Reason for Visit:: FOLLOW UP TKA Seen by Clinical Staff ONLY (RN/MA): No Verbal consent obtained for Telemed visit?: No Paper Cleaner Required: No PCP or OBGYN visit in last 3 months: Yes Hx Now: No Do You Feel Safe at Home: Yes Authorities Contacted: N/A Questionairres Past Medical History Past Medical History Have you ever been diagnosed with any of the following: Neurological Problems Seizures: No Cardiology Problems Hypercholesterolemia: Yes Congestive Heart Failure: No Deep Vein Thrombosis: Yes (Left 2022) Hypertension: Yes Respiratory Problems Chronic Obstructive Pulmonary Disease (COPD): No Hx Cough: No Cough: No Wheezing: No Chest Deformities: No Smoking: No Smoking Cessation Counseling: No Smoking Exposure: No Tobacco Use: No Clubbing: No Stomache/Intestinal Problems Hepatitis: No Genital/Urinary Problems Renal Disease: No Reproductive Problems Previous Pregnancies: Yes Uterine Prolapse: No Musculoskeletal Problems Arthritis: Yes Degenerative Disk Disease: Yes Fractures: Yes Endocrine Problems Diabetes Mellitus Type 1: No Diabetes Mellitus Type 2: Yes Psychologic Problems Depression: Yes Anxiety: Yes Other Problems Hospitalization: Yes (DVT) Shingles: No Blood Transfusions: No Blood Transfusion Reaction: No Anesthesia Reactions: No Measles: Yes Mumps: Yes Cancer: No Surgical History Hysterectomy: Yes Subjective Visit Visit for: follow up visit and knee Immunization / Flu Flu Vaccine in the Last 12 Months: No Flu Vaccine Exclusion Criteria: No Exclusion Criteria History of Present Illness Chief complaint: bilateral knee replacements Shima is doing well 12 months after knee replacement on the right 9 months on the left. She has minimal issues. She is back to playing [employer] ball Personal History Red flag PMH: BMI BMI Counceling provided: Yes Pain Pain level (0-10): 2 Pain duration: WEATHER CHANGES Pain location: inside (medial) Pain quality: aching Pain timing: increases with activity Associated signs & symptoms: none Ambulatory data Ambulatory device: none Treatments Improvement with previous injections: No Improvement with PT: No Improvement with NSAIDS: no Review of Systems Review of Systems: All systems negative unless otherwise noted in HPI.
[2024-09-16 09:28] VITALS: BP 143/82; PULSE 91; RESP 18; TEMP 36.8; O2SAT 97; BMI 24.6
== END 2024-09-16 09:35 | disposition home or self-care (01) ==
LOC: HODSRG 08:41
PROVIDERS: PCP Internal Medicine; Referring Provider Internal Medicine; Supervising Provider Orthopaedic Surgery Adult Reconstructive Orthopaedic Surgery; Visit Provider Orthopaedic Surgery Adult Reconstructive Orthopaedic Surgery
DX: M17.0 Bilateral primary osteoarthritis of knee (principal); M25.561 Pain in right knee; M25.562 Pain in left knee; Z96.652 Presence of left artificial knee joint; I10 Essential (primary) hypertension; E11.9 Type 2 diabetes mellitus without complications; E78.00 Pure hypercholesterolemia, unspecified; Z86.718 Personal history of other venous thrombosis and embolism
CPT/HCPCS: 99213; G0463

== ENCOUNTER → 2024-10-05 | Outpatient (CLI) | payer OTHER, SELFPAY ==
[2024-10-05 09:26] LABS: Collection Type, Urine Clean Catch
[2024-10-05 09:50] LABS: Basophils # (Auto) 0.1 Thou/mm3 (0.0-0.2); Basophils % (Auto) 2 % (0-2.5); Eosinophils # (Auto) 0.2 Thou/mm3 (0.0-0.5); Eosinophils % (Auto) 3 % (0-10); Hematocrit 46.2 % (36.0-46.0); Hemoglobin 15.7 g/dL (12.0-16.0); Immature Granulocytes Auto 0.04 Thou/mm3 (0.00-0.00); Lymphocytes # (Auto) 1.5 Thou/mm3 (1.0-4.8); Lymphocytes % (Auto) 24 % (10-50); Mean Corpuscular HGB Conc 34.0 g/dl (31.0-37.0); Mean Corpuscular Hemoglobin 31.7 pg (25.0-35.0); Mean Corpuscular Volume 93 fL (80-100); Monocytes # (Auto) 0.7 Thou/mm3 (0.0-0.8); Monocytes % (Auto) 11 % (0-12); Neutrophils # (Auto) 3.7 Thou/mm3 (1.8-7.7); Neutrophils % (Auto) 59 % (37-80); Nucleated Red Blood Cell # 0.00 Thou/mm3 (0.00-0.00); Nucleated Red Blood Cell % 0 /100 WBC (0); Platelet Count 220 Thou/mm3 (140-440); RDW Standard Deviation 44.0 fL (36.4-46.3); Red Blood Count 4.96 Miln/mm3 (4.00-5.20); White Blood Count 6.1 Thou/mm3 (3.6-11.0)
[2024-10-05 10:05] LABS: Glucose Estimated Average 157 mg/dL (80-131); Hemoglobin A1C 7.1 % Hgb (4.8-6.0)
[2024-10-05 10:08] LABS: Alanine Aminotransferase 14 U/L (10-49); Albumin, Serum 4.4 gm/dL (3.4-4.8); Albumin/Globulin Ratio 2.1 (1.2-2.2); Alkaline Phosphatase 78 U/L (46-116); Anion Gap 11 (7-16); Aspartate Amino Transferase 22 U/L (0-34); BUN/Creatinine Ratio 17 Ratio (12-20); Bilirubin,Total 0.6 mg/dL (0.3-1.2); Blood Urea Nitrogen 15 mg/dL (9-23); Calcium 9.2 mg/dL (8.3-10.6); Calcium (Corrected) 9.2 mg/dL (8.5-10.1); Carbon Dioxide 26.5 mMol/L (20.0-31.0); Cardiac Risk Estimate 3.6 RATIO (3.7-5.6); Chloride 107 mMol/L (98-107); Cholesterol 182 mg/dL (132-200); Creatinine (Component) 0.9 mg/dL (0.6-1.3); Globulin 2.1 gm/dL (2.3-3.5); Glucose 156 mg/dL (74-106); HDL Cholesterol 50 mg/dL (40-60); LDL Cholesterol,Calculated 113 mg/dL (0-130); Osmolality,Calculated 290 (275-295); Potassium 4.7 mMol/L (3.4-5.1); Sodium 144 mMol/L (136-145); Total Protein 6.5 gm/dL (5.7-8.2); Triglycerides 96 mg/dL (30-150); eGFR > 60 See Note
[2024-10-05 10:28] LABS: Creatinine MALB Rnd Ur 88 mg/dL (30-125); Microalbumin, Random Urine < 3 mg/L (0-300)
[2024-10-05 11:46] LABS: Bacteria,Urine Rare; Bilirubin,Urine Negative (Negative); Blood,Urine Negative (Negative); Clarity,Urine Clear (Clear/Hazy); Color,Urine Lt-Yellow (Lt Yel-Yel); Glucose, Urine 4+ (Negative); Ketones,Urine Negative (Negative); Leukocyte Esterase,Urine Negative (Negative); Nitrite,Urine Negative (Negative); PH,Urine 6.0 (5.0-7.0); Protein,Urine Negative (Neg - Trace); RBC,Urine 1 /hpf (0-3); Specific Gravity,Urine 1.035 (1.001-1.035); Squamous Epithelial Cell,Urine 1 /hpf (0-5); Urobilinogen,Urine Negative mg/dL (0.0-1.0); WBC,Urine 4 /hpf (0-5)
== END | disposition home or self-care (01) ==
LOC: COPL 08:08
PROVIDERS: PCP Internal Medicine; Referring Provider Internal Medicine; Visit Provider Internal Medicine
DX: E11.9 Type 2 diabetes mellitus without complications (principal); I10 Essential (primary) hypertension; E78.5 Hyperlipidemia, unspecified
CPT/HCPCS: 36415; 80053; 80061; 81001; 82043; 82570; 83036; 85025

== ENCOUNTER → 2025-01-10 | Outpatient (CLI) | payer OTHER, SELFPAY ==
[2025-01-10 13:20] LABS: Basophils # (Auto) 0.1 Thou/mm3 (0.0-0.2); Basophils % (Auto) 2 % (0-2.5); Eosinophils # (Auto) 0.2 Thou/mm3 (0.0-0.5); Eosinophils % (Auto) 3 % (0-10); Hematocrit 47.8 % (36.0-46.0); Hemoglobin 16.2 g/dL (12.0-16.0); Immature Granulocytes Auto 0.04 Thou/mm3 (0.00-0.00); Lymphocytes # (Auto) 1.7 Thou/mm3 (1.0-4.8); Lymphocytes % (Auto) 27 % (10-50); Mean Corpuscular HGB Conc 33.9 g/dl (31.0-37.0); Mean Corpuscular Hemoglobin 31.5 pg (25.0-35.0); Mean Corpuscular Volume 93 fL (80-100); Monocytes # (Auto) 0.6 Thou/mm3 (0.0-0.8); Monocytes % (Auto) 11 % (0-12); Neutrophils # (Auto) 3.5 Thou/mm3 (1.8-7.7); Neutrophils % (Auto) 57 % (37-80); Nucleated Red Blood Cell # 0.00 Thou/mm3 (0.00-0.00); Nucleated Red Blood Cell % 0 /100 WBC (0); Platelet Count 248 Thou/mm3 (140-440); RDW Standard Deviation 43.8 fL (36.4-46.3); Red Blood Count 5.15 Miln/mm3 (4.00-5.20); White Blood Count 6.1 Thou/mm3 (3.6-11.0)
[2025-01-10 14:08] LABS: Vitamin D 25 Hydroxy Total 49.0 ng/mL (7.3-40.2)
[2025-01-10 14:22] LABS: Alanine Aminotransferase 14 U/L (10-49); Albumin, Serum 4.8 gm/dL (3.4-4.8); Albumin/Globulin Ratio 2.1 (1.2-2.2); Alkaline Phosphatase 78 U/L (46-116); Anion Gap 10 (7-16); Aspartate Amino Transferase 22 U/L (0-34); BUN/Creatinine Ratio 17 Ratio (12-20); Bilirubin,Total 0.8 mg/dL (0.3-1.2); Blood Urea Nitrogen 15 mg/dL (9-23); Calcium 9.9 mg/dL (8.3-10.6); Calcium (Corrected) 9.9 mg/dL (8.5-10.1); Carbon Dioxide 23.6 mMol/L (20.0-31.0); Cardiac Risk Estimate 4.1 RATIO (3.7-5.6); Chloride 108 mMol/L (98-107); Cholesterol 190 mg/dL (132-200); Creatinine (Component) 0.9 mg/dL (0.6-1.3); Globulin 2.3 gm/dL (2.3-3.5); Glucose 142 mg/dL (74-106); HDL Cholesterol 46 mg/dL (40-60); LDL Cholesterol,Calculated 128 mg/dL (0-130); Osmolality,Calculated 285 (275-295); Potassium 4.6 mMol/L (3.4-5.1); Sodium 142 mMol/L (136-145); Total Protein 7.1 gm/dL (5.7-8.2); Triglycerides 79 mg/dL (30-150); eGFR > 60 See Note
== END | disposition home or self-care (01) ==
LOC: COPL 12:04
PROVIDERS: PCP Internal Medicine; Referring Provider Psychiatry & Neurology Neurology; Visit Provider Psychiatry & Neurology Neurology
DX: I10 Essential (primary) hypertension (principal); E11.49 Type 2 diabetes mellitus with other diabetic neurological complication; E78.5 Hyperlipidemia, unspecified
CPT/HCPCS: 36415; 80053; 80061; 82306; 85025

== ENCOUNTER 2025-02-16 10:19 | Emergency (ER) | payer OTHER, SELFPAY ==
[2025-02-16 10:34] VITALS: BP 136/79; PULSE 85; RESP 18; TEMP 36.8; O2SAT 95; BMI 24.7
--- NOTE | 2025-02-16 10:36 | XR_ITS ---
EXAMINATION: Thoracic spine 2 views TECHNIQUE: Lateral, coned lateral upper dorsal spine 2 views INDICATIONS: Back pain this week FINDINGS: No AP view Prominent osteopenia No acute thoracic fracture Moderate to advanced diffuse thoracic degenerative disc disease IMPRESSION: Incomplete study
--- NOTE | 2025-02-16 10:36 | XR_ITS ---
EXAMINATION: Lumbar spine 3 views TECHNIQUE: AP lateral, lateral lower lumbar spine 3 views Date and time: February 16 2025, 1119 hours, comparison August 24, 2008 INDICATIONS: Sudden onset low back pain today. FINDINGS: Prominent osteopenia No acute lumbar fracture Grade 1 anterolisthesis L4 on L5 Mild disc narrowing L3-L4 Moderate disc narrowing L4-L5 Advanced disc narrowing L5-S1 Mild lumbar spondylosis IMPRESSION: No lumbar fracture Moderate degenerative disc disease L4-L5 Advanced degenerative disc disease L5-S1
[2025-02-16] MEDS: KETOROLAC INJ 30 MG/ML VIAL IM (11:07)
--- NOTE | 2025-02-16 12:11 | EDNOTE_ITS ---
ED Back Injury Pain RME/HPI General Chief Complaint: Back Pain/Injury Stated Complaint: LOWER BACK PAIN Time Seen by Provider: 02/16/25 10:35 Arrival date/time: 02/16/25 10:19 69-year-old female presents to the emergency room today complains of lower back pain patient reports pain is worse with movement patient reports no saddle anesthesia no loss of bowel or bladder no direct trauma or injury patient reports that she suffers from acute on chronic back pain Limitations: no limitations Related Data Home Medications ?Medication ?Instructions ?Recorded ?Confirmed insulin glargine 100 unit/mL (3 30 unit subcut QDAY [place] N 06/20/17 09/16/24 mL) subcutaneous pen (Lantus Hyperglycemia Solostar U-100 Insulin) dapagliflozin propanediol 5 mg 5 mg PO QAM 07/09/22 tablet (Farxiga) duloxetine 30 mg capsule,delayed 30 mg PO HS 07/09/22 09/16/24 release atorvastatin 20 mg tablet (Lipitor) 20 mg PO QDAY 07/2209/16/24 duloxetine 60 mg capsule,delayed 60 mg PO QAM 01/02/24 09/16/24 release sprinkle memantine 5 mg tablet 5 mg PO DAILY 01/02/2409/16 Previous Rx's ?Medication ?Instructions ?Recorded acetaminophen 500 mg tablet 1,000 mg (2 x 500 mg) PO Q 6H PRN 01/05/24 (Acetaminophen Extra Strength) pain #90 tabs apixaban 2.5 mg tablet (Eliquis) 2.5 mg PO BID #60 tab s 01/05/24 doxycycline hyclate 100 mg tablet 100 mg PO BID #14 ta bs 01/05/24 gabapentin 300 mg capsule 300 mg PO .qhs #30 caps 10/21 sennosides 8.6 mg-docusate sodium 1 tab-cap PO QDAY #3 0 tabs 01/05/24 50 mg tablet (Senna-S) oxycodone 5 mg tablet 5 mg PO Q6H PRN pain #28 tab s 01/23/24 meloxicam 7.5 mg tablet 7.5 mg PO QDAY #45 tabs 01/29 12/22 cyclobenzaprine 10 mg tablet 10 mg PO TID PRN muscle s pasm 10 02/16/25 days #30 tab-caps hydrocodone 5 mg-acetaminophen 325 1 tab PO BID PRN pa in #10 tabs 02/16/25 mg tablet Allergies Allergy/AdvReac Type Severity Reaction Status Date / Time YOHANA Inhibitors Allergy Intermediate Cough Verified 02/16/25 10:23 Review of Systems Review of Systems Systems Reviewed: All systems reviewed, normal except as documented Constitutional Constitutional: Reports system reviewed and no additional complaints, except as documented, Denies fever(s) and Denies headache(s) Eyes Eyes: Reports system reviewed and no additional complaints, except as documented and Denies blurry vision ENT Ears, Nose, Mouth, and Throat: Reports system reviewed and no additional complaints, except as documented, Denies headache(s), Denies nasal congestion and Denies nasal discharge Cardiovascular Cardiovascular: Reports system reviewed and no additional complaints, except as documented, Denies chest pain and Denies dyspnea Respiratory Respiratory: Reports system reviewed and no additional complaints, except as documented, Denies chest congestion, Denies cough and Denies dyspnea Gastrointestinal Gastrointestinal: Reports system reviewed and no additional complaints, except as documented and Denies abdominal pain Integumentary/Breasts Skin/Breast: Reports system reviewed and no additional complaints, except as documented and Denies rash Neurologic Neurologic: Reports system reviewed and no additional complaints, except as documented, Reports as per HPI and Denies headache(s) Past Medical History Past Medical History NEUROLOGIC: Negative Neurological Disorders or Seizures CARDIAC: Positive Cardiac Disorders, Hypercholesterolemia, Deep Vein Thrombosis (Left 2022) and Hypertension; Negative Congestive Heart Failure RESPIRATORY: Negative Chronic Obstructive Pulmonary Disease (COPD), Cough, Sputum Production, Wheezing, Chest Deformities, Smoking, Smoking Cessation Counseling, Smoking Exposure, Tobacco Use or Clubbing GASTROINTESTINAL: Negative Gastrointestinal Disorders or Hepatitis GENITOURINARY: Negative Genitourinary Disorders or Renal Disease REPRODUCTIVE: Positive Previous Pregnancies; Negative Uterine Prolapse MUSCULOSKELETAL: Positive Musculoskeletal Disorders, Arthritis, Degenerative Disk Disease and Fractures ENDOCRINE: Positive Endocrine Disorders and Diabetes Mellitus Type 2; Negative Diabetes Mellitus Type 1 HEMATOLOGIC: Negative Blood Disorders PSYCHO/SOCIAL: Positive Depression and Anxiety OTHER HISTORY: Positive Hospitalization (DVT), Measles and Mumps; Negative Autoimmune Disease, Shingles, Blood Transfusions, Blood Transfusion Reaction, Anesthesia Reactions or Cancer Family History FAMILY HISTORY: Positive Family Psychiatric Problems, Family Cardiac Disorders, Family Cancer and Family Surgery; Negative Family Respiratory Disorders, Family Gastrointestinal Problems or Family Anesthesia Reaction Surgical History SURGICAL: Positive Arthroscopy (2 left knee, 3 right knee), Hysterectomy and Tubal Ligation Social History SMOKING STATUS: Never smoker ED Exam General Limitations: Present no limitations General appearance: Present alert and in no apparent distress Head Head exam: Present atraumatic Eye Eye exam: Present normal appearance, PERRL and EOMI ENT ENT exam: Present normal exam, normal oropharynx and mucous membranes moist Neck Neck exam: Present normal inspection, full ROM and trachea midline Chest Chest inspection: Present normal inspection and symmetric chest wall rise Respiratory Respiratory exam: Present normal lung sounds bilaterally Cardiovascular Cardiovascular exam: Present regular rate, normal rhythm and normal heart sounds Abdominal Exam Abdominal exam: Present soft and normal bowel sounds; Absent distention, tenderness, guarding, rebound or rigidity Extremities Exam Extremities exam: Present normal inspection and full ROM Back Exam Back exam: Present normal inspection, full ROM, tenderness, muscle spasm, paraspinal tenderness and vertebral tenderness; Absent CVA tenderness (R), CVA tenderness (L), rashes, sciatic notch tenderness (R), sciatic notch tenderness (L), straight leg raise (R) or straight leg raise (L) Neurological Exam Neurological exam: Present alert, oriented X3 and CN II-XII intact Psychiatric Psychiatric exam: Present normal affect and normal mood Skin Skin exam: Present warm, dry, intact and normal color Course Quality Measures none Orders Category Date Time Status XR lumbar spine 2-3V Stat Exams 02/16/25 10:36 Completed XR thoracic spine 3V Stat Exams 02/16/25 10:36 Completed CYCLObenzaPRINE [Flexeril] Med 02/16/25 10:36 Discontinued 5 mg PO X1 ONE Ketorolac Inj [Toradol Inj] Med 02/16/25 10:36 Discontinued 30 mg IM X1 ONE Vital Signs Vital signs: Vital Signs Temperature 98.2 F 02/16/25 10:34 Pulse Rate 85 02/16/25 10:34 Respiratory Rate 18 02/16/25 10:34 Blood Pressure 136/79 H 02/16/25 10:34 Pulse Oximetry (%) 95 02/16/25 10:34 Oxygen Delivery Method Room Air 02/16/25 10:34 O2 saturation 95% r.a wnl Back Pain / Injury MDM Narrative MDM Narrative:: 69-year-old female presents to the emergency room today complains of lower back pain patient reports pain is worse with movement patient reports no saddle anesthesia no loss of bowel or bladder no direct trauma or injury patient reports that she suffers from acute on chronic back pain On exam patient well-appearing does not appear like does not distress Imaging obtained no acute emergent findings noted Patient has chronic findings on x-ray Patient struck to have an outpatient MRI Patient given pain medication here Patient discharged home in no distress to follow-up with primary care doctor in the next 24 to 48 hours and for any worsening symptoms to return to the ER immediately Patient data External records reviewed:: [facility] previous records Clinical information provided by:: patient Social determinants that could affect healthcare access:: none Patient has the following chronic illnesses:: History How is presenting disease/condition affected by chronic disease/condition?: caused by Evaluation data The following diagnostics were reviewed and interpreted by me:: radiology exam(s) Lab and/or radiology exams considered but not ordered:: Radiology obtained Interpretation Summary: Reviewed by me Medications / Prescriptions Medications or Prescriptions considered but not ordered:: Given Medication administrations:: Medication Administration History Discontinued Medications Cyclobenzaprine HCl (Cyclobenzaprine 5 Mg Tablet) 5 mg PO X1 ONE Stop: 02/16/25 10:37 Last Admin: 02/16/25 11:07 Dose: 5 mg Documented By: Ketorolac Tromethamine (Ketorolac Inj 30 Mg/Ml Vial) 30 mg IM X1 ONE Stop: 02/16/25 10:37 Last Admin: 02/16/25 11:07 Dose: 30 mg Documented By: Given Consultations Consultation(s) initiated? (list below): No Diagnosis Differential diagnosis back pain/injury: lumbar radiculopathy, strain of lumbar region, renal colic and pyelonephritis Most likely diagnosis given after review of the tests above:: Given Admission Indicated Admission indicated?: not indicated Admission Request Was there a request for admission?: No Disposition Plan Disposition Plan: Discharge Discharge Attestation Discharge Attestation: The patient and all family members were given an opportunity to ask questions and understood the discharge instructions. Discharge instructions specifically effects, indications for sooner follow up or return to the emergency department, and the expected course of current diagnosis. Patient condition: Stable Discharge Plan Plan Patient Disposition: HOME (Self Care) Discharge Disposition comment: Stable Prescriptions/Referrals Prescriptions/Med Rec: New cyclobenzaprine 10 mg tablet 10 mg PO TID PRN (Reason: muscle spasm) 10 Days Qty: 30 0RF hydrocodone-acetaminophen 5-325 mg tablet 1 tab PO BID MDD 10 PRN (Reason: pain) Qty: 10 0RF No Action meloxicam 7.5 mg tablet 7.5 mg PO QDAY Qty: 45 3RF oxycodone 5 mg tablet 5 mg PO Q6H MDD 20 PRN (Reason: pain) Qty: 28 0RF insulin glargine [Lantus Solostar U-100 Insulin] 100 unit/mL (3 mL) Insulin Pen 30 unit SUB-Q QDAY PRN (Reason: Hyperglycemia) duloxetine 30 mg capsule,delayed release(DR/EC) 30 mg PO HS dapagliflozin propanediol [Farxiga] 5 mg Tablet 5 mg PO QAM atorvastatin [Lipitor] 20 mg Tablet 20 mg PO QDAY memantine 5 mg tablet 5 mg PO DAILY duloxetine 60 mg Capsule, Delayed Rel Sprinkle 60 mg PO QAM acetaminophen [Acetaminophen Extra Strength] 500 mg tablet 1,000 mg PO Q6H MDD 1000mg PRN (Reason: pain) Qty: 90 0RF sennosides-docusate sodium [Senna-S] 8.6-50 mg tablet 1 tab-cap PO QDAY Qty: 30 0RF gabapentin 300 mg capsule 300 mg PO .qhs Qty: 30 0RF doxycycline hyclate 100 mg tablet 100 mg PO BID Qty: 14 0RF Eliquis 2.5 mg tablet 2.5 mg PO BID Qty: 60 0RF Referrals: Tg Weir MD [Primary Care Provider, Nephrology] - In 1 week Problem List Clinical Impression: Lumbar back pain, DDD (degenerative disc disease), lumbar Patient/Caregiver Discharge Instructions Education Materials: Back Safety: Bending Additional Instructions: Please follow-up with primary care doctor request outpatient MRI for worsening symptoms or concerns return immediately Print Language: Micronesian Stand Alone Forms: Jayla Award Info., Work/School Release, Patient Portal Info Letter PA/SERVICE TECHNICIAN Supervising Physician PA/SERVICE TECHNICIAN Supervising Physician: Dr. Reeder
== END 2025-02-16 12:42 | disposition home or self-care (01) ==
PROVIDERS: Emergency Provider Nurse Practitioner Primary Care; PCP Internal Medicine
DX: S39.92XA Unspecified injury of lower back, initial encounter (principal); X50.0XXA Overexertion from strenuous movement or load, initial encounter; G89.29 Other chronic pain
CPT/HCPCS: 72072; 72100; 96372; 99283; J1885; A9270

== ENCOUNTER → 2025-02-22 | Outpatient (CLI) | payer OTHER, SELFPAY ==
[2025-02-22 10:50] LABS: Creatinine MALB Rnd Ur 66 mg/dL (30-125); Microalbumin Creat Ratio 9 mg/gCrea (<30); Microalbumin, Random Urine 6 mg/L (0-300)
[2025-02-22 10:50] LABS: Alanine Aminotransferase 13 U/L (10-49); Albumin, Serum 4.6 gm/dL (3.4-4.8); Albumin/Globulin Ratio 2.4 (1.2-2.2); Anion Gap 10 (7-16); Aspartate Amino Transferase < 8 U/L (0-34); BUN/Creatinine Ratio 17 Ratio (12-20); Bilirubin,Total 0.7 mg/dL (0.3-1.2); Blood Urea Nitrogen 15 mg/dL (9-23); Calcium 9.7 mg/dL (8.3-10.6); Calcium (Corrected) 9.7 mg/dL (8.5-10.1); Carbon Dioxide 25.3 mMol/L (20.0-31.0); Chloride 107 mMol/L (98-107); Creatinine (Component) 0.9 mg/dL (0.6-1.3); Globulin 1.9 gm/dL (2.3-3.5); Glucose 157 mg/dL (74-106); Glucose Estimated Average 160 mg/dL (80-131); Hemoglobin A1C 7.2 % Hgb (4.8-6.0); Osmolality,Calculated 286 (275-295); Potassium 4.6 mMol/L (3.4-5.1); Sodium 142 mMol/L (136-145); Total Protein 6.5 gm/dL (5.7-8.2); eGFR > 60 See Note
[2025-02-22 11:20] LABS: Alkaline Phosphatase 67 U/L (46-116); Cardiac Risk Estimate 3.6 RATIO (3.7-5.6); Cholesterol 177 mg/dL (132-200); HDL Cholesterol 49 mg/dL (40-60); LDL Cholesterol,Calculated 105 mg/dL (0-130); Triglycerides 117 mg/dL (30-150)
== END | disposition home or self-care (01) ==
LOC: COPL 09:30
PROVIDERS: PCP Internal Medicine; Referring Provider Internal Medicine; Visit Provider Internal Medicine
DX: I10 Essential (primary) hypertension (principal); E78.5 Hyperlipidemia, unspecified; E03.9 Hypothyroidism, unspecified
CPT/HCPCS: 36415; 80053; 80061; 82043; 82570; 83036